=== PATIENT | female | born 1955 | race Caucasian/White ===

== ENCOUNTER → 2022-03-14 | Outpatient (CLI) | payer MEDICARE | END | disposition short-term general hospital (02) | LOC: EMS 14:33 | DX: R07.9 Chest pain, unspecified (principal); M79.602 Pain in left arm; R42 Dizziness and giddiness | CPT/HCPCS: A0425; A0427 ==

== ENCOUNTER 2023-08-14 14:51 | Outpatient (CLI) | payer MEDICARE ==
--- NOTE | 2023-08-15 09:10 | Ultrasound Report ---
PROCEDURE: Duplex Ext Veins Bilateral INDICATIONS: Bilateral leg pain, history of tobacco use TECHNIQUE: Real-time imaging, as well as color and pulse Doppler interrogation, were performed of the deep veins of both legs from the inguinal ligament to the popliteal fossa. Attempted visualization of the calf veins was performed. COMPARISON: None FINDINGS: The deep veins are normally compressible, and free of intraluminal thrombus. Color and pu lse Doppler demonstrate normal phasic intravascular flow. There is normal augmentation response to d istal compression maneuver. IMPRESSION: No deep venous thrombosis of the visualized lower extremities. Reviewed by: Nixon Carmichael MD on 08/15/2023 9:[address] [facility] Approved by: Nixon Carmichael MD on 08/15/2023 9:[address] [facility] Station ID: [id number]
--- NOTE | 2023-08-15 09:17 | Ultrasound Report ---
PROCEDURE: Arterial Duplex Lwr Ext BL INDICATIONS: BILAT LE PAIN AND CRAMPING WITH MOVEMENT TECHNIQUE: Color and pulse Doppler interrogation was performed of both lower extremity arterial systems, with im age documentation. COMPARISON: None available at the time of dictation FINDINGS: Right lower extremity: Common femoral artery: 140 cm/sec, with parvis tardis, turbulent flow. Deep femoral artery: 70 cm/sec, with flow. Proximal superficial femoral artery: 89 cm/sec, with parvus tardus flow. Mid superficial femoral artery: 83 cm/sec, with parvus tardus flow. Distal superficial femoral artery: 63 cm/sec, with parvus tardus flow. Popliteal artery: 46 cm/sec, with parvus tardus flow. Posterior tibial artery: 15 cm/sec, with parvus tardus flow. Anterior tibial artery/dorsalis pedis: 57/42 cm/sec, with parvus tardus flow. Bustillo-scale imaging description: Moderate amount of atherosclerotic plaque Left lower extremity: Common femoral artery: 102 cm/sec, with parvis tardis, turbulent flow. Deep femoral artery: 56 cm/sec, with parvus tardus flow. Proximal superficial femoral artery: 138 cm/sec, with parvus tardus flow. Mid superficial femoral artery: 70 cm/sec, with parvus tardus flow. Distal superficial femoral artery: 189 cm/sec, with parvus tardus flow. Popliteal artery: 81 cm/sec, with parvus tardus flow. Posterior tibial artery: 24 cm/sec, with parvus tardus flow. Anterior tibial artery/dorsalis pedis: 47/42 cm/sec, with parvus tardus flow. Bustillo-scale imaging description: Moderate amount of atherosclerotic plaque IMPRESSION: Hemodynamically significant stenosis starting at the common femoral arteries and continuingthroughout both lower extremities. Recommend revascularization is indicated. Reviewed by: Nixon Carmichael MD on 08/15/2023 9:16 AM PST Approved by: Nixon Carmichael MD on 08/15/2023 9:16 AM PST Station ID: [id number]
== END 2023-08-14 14:52 | disposition home or self-care (01) ==
LOC: DI 14:51
PROVIDERS: ATTEND Nurse Practitioner Family
DX: I70.203 Unspecified atherosclerosis of native arteries of extremities, bilateral legs (principal); M79.662 Pain in left lower leg; M79.661 Pain in right lower leg
CPT/HCPCS: 93925; 93970